=== PATIENT | female | born 1995 | race Caucasian/White ===

== ENCOUNTER 2016-09-27 02:17 | Emergency (ER) | payer MEDICAID ==
[2016-09-27] MEDS ORDERED: NS 1,000 ML IV ONE (02:29)
[2016-09-27 02:35] VITALS: TEMP 98.4; BMI 25.8
--- NOTE | 2016-09-27 02:38 | EDPRACDOC ---
- General Information Chief Complaint: Overdose Stated Complaint: OVERDOSE Time Seen by Provider: 09/27/16 02:28 Information Source: Patient, [employer] Mode of Arrival: Ambulance Home Medications: Home Medications Naloxone HCl [Narcan] 4 mg NS DAILY #1 spray 09/27/16 Allergies/Adverse Reactions: Allergies Allergy/AdvReac Type Severity Reaction Status Date / Time No Known Allergies Allergy Verified 09/27/16 02:36 - History of Present Illness Onset: NNPS HPI: PT USED HEROIN TONIGHT AND OVERDOSED. PT'S FIANCEE GAVE PT CPR. EMS SAID THAT PT WAS AWAKE AND ALERT WHEN THEY ARRIVED. THEY SPENT A LONG TIME AT THE SCENE TRYING TO GET PT TO COME IN. SHE FINALLY AGREED. EN ROUTE, SHE BECAME APNEIC. SHE WAS GIVEN 2 MG OF NARCAN AND IT HELPED A LITTLE, BUT SHE WAS STILL HAVING PERIODS OF APNEA, SO SHE WAS GIVEN 2 MORE. PT IS NOW AWAKE. Reason for Seeking Treatment: 911 Call - Treatment Prior to ED Arrival Reported Medications/Treatment NNPS Medications NNPS (Medication/ NARCAN 4mg EMS Dose/Time) EMS Treatment BLS ED Past Medical History - History Reviewed No Past Medical History: Yes Patient has no past medical history - Patient Medical History Surgical History: Reports: No Significant History - Social Medical History Smoking Status: Heavy tobacco smoker (5 or more cigarettes/day or daily pipe/ cigar) Social History: Reports: Heroin Use ETOH: None Substance Abuse: Illicit Drugs Lives In: Home EDM Review of Systems - Review of Systems ROS Negative Except as Marked: Yes All systems reviewed and were negative except as marked - Physical Exam Constitutional: Alert (Awake), No apparent distress Oriented to: Time, Person, Place Last recorded Vital Signs: Last Vital Signs Temp 98.4 F 09/27/16 02:29 Pulse 87 09/27/16 02:29 Resp 20 09/27/16 02:29 BP 138/84 09/27/16 02:29 Pulse Ox 98 09/27/16 02:29 Oxygen Pulse Oxygen Saturation 98 O2 Device Room Air Oxygen Flow Rate Fraction of Inspired Oxygen ( FIO2) - HEENT Head: Normal ( normocephalic) Eye Exam: Normal (PERRL, EOMI, Sclera white) Oropharynx: Normal (Pharynx:Moist without exudate,Gums-no swelling) ENT EAC: Normal TMJ: Normal Nose: No Symptoms Reported (septum midline) Neck: Normal (FROM, trachea at midline) - Respiratory/Cardiovascular Respiratory: Normal - CTA (BBS clear to auscultation without adventitious sounds ) Cardiovascular: Normal (RRR without murmur, gallop or rub) - GI Auscultation: Normal (NABS) Palpation: Normal (Soft,No rebound or guarding, non distended) Tenderness: Non tender Lama's Sign: Negative - Musculoskeletal Back: Normal (Non-Tender) Extremities: Normal (Normal tone, Pulses 2+ No cyanosis or edema, FROM) - Integumentary Skin: Normal, Warm, Dry Lymphatics: Normal (no adenopathy) - Neurologic Memory Impaired: Normal Motor Function: Normal (Normal tone, Pulses 2+ No cyanosis or edema, FROM) Cranial Nerve: Normal (CN II-X11 intact sensation, strength 5/5) Cerebellar: Normal Mood Description: Normal Thought: Coherent Perception: Normal - Results 09/27/16 02:54 09/27/16 02:54 - EKG EKG #1 EKG Time: 02:44 -: Yes EKG interpreted by me Rate: bpm: 83 Jerome: Normal Rhythm: NSR Block: None Hypertrophy: None ST: Normal - Additional Information Additional Information: PT REFUSED TO URINATE AND REFUSED A URINE CATH. SHE HAS BEEN SATURATING WELL FOR HRS NOW. SHE IS AWAKE AND ALERT AND CAN BE D/C'D HOME. Decision Time to Discharge: 06:07 - Departure Yes I personally saw and evaluated the patient. Disposition: Home Condition: Fair Final Diagnosis: Heroin overdose Instructions: Narcotic Abuse (ED) Education/Counseling Given To: Patient Education/Counseling Given Regarding: Diagnosis, Treatment Referrals: None,No Provider [Primary Care Provider] - One Week Prescriptions: New Naloxone HCl [Narcan] 4 mg NS DAILY #1 spray Additional Instructions: DO NOT USE HEROIN
[2016-09-27 03:04] LABS: MPV 8.9 fL (7.4-10.4)
[2016-09-27 03:15] LABS: BLOOD UREA NITROGEN 10 MG/DL (7-17); CALCIUM 9.4 MG/DL (8.4-10.2); CALCULATED OSMOLALITY 278 MOs/Kg (270-290); CHLORIDE 104 mEq/L (98-107); ETOH-MGDL < 10 mg/dL; GLUCOSE 94 MG/DL (70-99); SODIUM LEVEL 145 mEq/L (137-146); TOTAL PROTEIN 8.6 G/DL (6.3-8.2)
[2016-09-27 03:40] LABS: SEG NEUTROPHIL 82 % (45-76)
[2016-09-27 06:34] VITALS: BP 107/57; PULSE 66
== END 2016-09-27 06:34 | disposition home or self-care (01) ==
LOC: ED 02:17
DX: T40.1X1A Poisoning by heroin, accidental (unintentional), initial encounter (principal)
CPT/HCPCS: 36415; 80053; 80307; 80329; 83605; 84484; 84702; 85007; 85027; 93005; 96360; 99285